=== PATIENT | female | born 1980 | race African-American/Black ===

== ENCOUNTER 2016-06-15 11:24 | Emergency (ER) | payer OTHER ==
[~2016-06-15] VITALS: Ht 165.1 cm; Wt 86.2 kg
[~2016-06-15 11:24] MED LIST: AMOXICILLIN500 MG PO; ANAPROX DS550 M1 PO; ANTIFUNGAL15 G1 TP; ATARAX,VISTARIL50 MG PO; AUGMENTIN500 MG PO; AUGMENTIN875 MG PO; BENADRYL ALLERG25 MG PO; CYMBALTA20 MG PO; DESYREL100 MG PO; DIAZEPAM5 MG PO; DICLOFENAC SODI75 MG PO; DIVALPROEX SOD500 MG PO; DOXEPIN HCL10 MG PO; ENDOCET 5-3251 EACH PO; FLEXERIL10 MG PO; FLEXERIL5 MG PO; FLONASE16 G1 BOTH NARES; GABAPENTIN300 MG PO; IBUPROFEN800 MG PO; INDOCIN25 MG PO; KEFLEX500 MG PO; LATUDA20 MG PO; LATUDA40 MG PO; MOTRIN600 MG PO; Motrin PO; NORCO 7.5/321 TABLET PO; PEN-VEE K,VEET500 MG PO; PREDNISONE20 MG PO; PREDNISONE50 MG PO; PRENATAL PLUS1 EAC3 PO; PRENATAL TABLE1 EACH PO; TYLENOL REGULA325 MG PO; ULTRACET1 TABLET PO; ULTRAM50 MG PO; VALIUM5 MG PO; VENTOLIN HFA18 GM IH; VICODIN,LORT1 TABLET PO; WESTCORT15 G1 TP; ZANTAC300 MG PO; ZITHROMAX Z-PA250 MG PO; ZOFRAN8 MG PO; [UNRECOGNIZED DRUG - CODE] PR
[2016-06-15] MEDS ORDERED: ULTRAM50 MG PO (13:42)
[2016-06-15] MEDS ORDERED: FLEXERIL10 MG PO (13:42)
[2016-06-15 14:00] VITALS: BP 126/67
== END 2016-06-15 14:00 | disposition home or self-care (01) ==
LOC: EME 11:24
DX: S70.01XA Contusion of right hip, initial encounter (principal); S30.0XXA Contusion of lower back and pelvis, initial encounter; M62.838 Other muscle spasm; W10.8XXA Fall (on) (from) other stairs and steps, initial encounter; M06.9 Rheumatoid arthritis, unspecified; F17.200 Nicotine dependence, unspecified, uncomplicated
CPT/HCPCS: 72100; 73502; 99281; 99284; J1885; J3010

== ENCOUNTER 2016-06-25 08:57 | Emergency (ER) | payer OTHER ==
[~2016-06-25] VITALS: Ht 165.1 cm; Wt 85.0 kg
[2016-06-25] MEDS ORDERED: INDOCIN50 MG PO (10:07)
[2016-06-25 10:53] VITALS: BP 115/64
== END 2016-06-25 10:55 | disposition home or self-care (01) ==
LOC: EME 08:57
DX: M54.5 Low back pain (principal); G89.29 Other chronic pain; M25.551 Pain in right hip; M25.552 Pain in left hip; J06.9 Acute upper respiratory infection, unspecified; M06.9 Rheumatoid arthritis, unspecified; F17.200 Nicotine dependence, unspecified, uncomplicated
CPT/HCPCS: 99281; 99283